=== PATIENT | female | born 1935 | race Caucasian/White ===

== ENCOUNTER → 2016-11-29 | Outpatient (CLI) | payer OTHER ==
[~2016-11-29] MED LIST: AMOXIL500 MG PO; APIDRA100 U/ML SC; AUGMENTIN 875875 MG PO; AVPAK AZITHROM250 M1 PO; CARAFATE1 G1 PO; CARDIZEM CD360 MG PO; CIPRO250 MG PO; COUMADIN2.5 M1 PO; COUMADIN3 M1 PO; COUMADIN4 M2 PO; COUMADIN5 M2 PO; EVISTA60 MG PO; FERROUS SULFAT325 MG PO; HUMULIN 70/30 710 M1; KEFLEX500 M1 PO; KIONEX15 GM/60 M; KIONEX15 GM/60 M PO; LANTUS100 U/ML SC; LASIX20 MG PO; LEVEMIR10 ML SC; LEVEMIR10 ML SQ; LOPRESSOR25 MG PO; LOVENOX80 MG/0.8 SC; LYRICA75 MG PO; METOCLOPRAMIDE5 MG PO; METOPROLOL50 MG PO; NATURE'S BLEND400 I1 PO; NOVOLOG1 UNIT/0.0 SC; NOVOLOG10 ML SC; OMEPRAZOLE20 MG PO; OMEPRAZOLE40 MG PO; PRAVACHOL40 MG PO; PRILOSEC40 M1 PO; PROTONIX40 MG PO; RALOXIFENE HCL60 MG PO; TYLENOL650 M1 PO; ULTRAM50 MG PO; VITAMIN D PO; VITAMIN D1000 IU PO; VITAMIN D2000 IU PO; VITAMIN D32000 UNI1 PO; VITAMIN D400 I1 PO; VOSOL HC OT; ZOFRAN ODT4 MG SL; [UNRECOGNIZED DRUG - OTHER]
[2016-11-29 12:00] LABS: BILIRUBIN NEGATIVE (NEGATIVE); BLOOD 1+ (NEGATIVE); CLARITY SL CLOUDY (CLEAR); COLOR YELLOW (YELLOW); GLUCOSE NEGATIVE (NEGATIVE); KETONE NEGATIVE (NEGATIVE); LEUKO ESTERASE TRACE (NEGATIVE); NITRITE NEGATIVE (NEGATIVE); PROTEIN NEGATIVE (NEGATIVE); SPECIFIC GRAVITY 1.015 (1.005-1.030); UROBILINOGEN 0.2 E.U./dl (0.2-1.0)
[2016-11-29 12:03] LABS: BASO # 0.1 10*3/uL (0.0-0.1); BASO % 1.3 % (0.0-1.0); EOS # 0.2 10*3/uL (0.0-0.4); EOS % 2.3 % (1.0-4.0); HEMATOCRIT 32.2 % (37.0-47.0); HEMOGLOBIN 9.6 g/dl (12.0-16.0); LYMPH # 2.3 10*3/uL (1.3-4.4); LYMPH % 32.7 % (27.0-41.0); MEAN CELL VOLUME 83.4 fl (81.0-99.0); MEAN CORPUSCULAR HGB 24.9 pg (27.0-31.0); MEAN CORPUSCULAR HGB CONC 29.8 g/dl (33.0-37.0); MEAN PLATELET VOLUME 9.8 fl (9.6-12.3); MONO # 0.6 10*3/uL (0.1-1.0); MONO % 9.2 % (3.0-9.0); NEUT # 3.8 10*3/uL (2.3-7.9); NEUT % 54.2 % (47.0-73.0); PLATELET COUNT AUTOMATED 271 10*3/uL (130-400); RED BLOOD COUNT 3.86 10*6/uL (4.10-5.10); RED CELL DISTRI WIDTH 15.1 % (0-14.5); WHITE BLOOD COUNT 6.9 10*3/uL (4.8-10.8)
[2016-11-29 12:08] LABS: URINE TP/CRE RATIO 0.1 (<0.21)
[2016-11-29 12:13] LABS: BACTERIA TRACE
[2016-11-29 12:33] LABS: ALBUMIN 3.2 gm/dl (3.1-4.5); MAGNESIUM 1.9 mg/dL (1.5-2.1); PHOSPHOROUS 3.1 mg/dL (2.5-4.9); POTASSIUM 5.6 mmol/L (3.5-5.1)
[2016-11-29 12:42] LABS: PTH INTACT 104.2 pg/mL (14.0-72.0); VITAMIN D, 25-HYDROXY 42.6 ng/mL (30-100)
== END | disposition home or self-care (01) ==
LOC: LAB 11:24
PROVIDERS: Internal Medicine Nephrology
DX: N18.4 Chronic kidney disease, stage 4 (severe) (principal)

== ENCOUNTER 2016-12-07 11:31 | Inpatient (IN) | payer OTHER ==
[~2016-12-07] VITALS: Ht 165.1 cm; Wt 69.9 kg
--- NOTE | ~2016-12-07 | CON ---
[place], [place] REPORT OF CON[facility]ULTATION [id number] UN[facility] #: [id number] ROOM: 408 DOCTOR: MARILUZ MUNSON MD BIRTHDATE: [birth year] DOS: 12/07/2016 HISTORY OF PRESENT ILLNESS: An 81-year-old patient who presented with chief complaint of a few months of diarrhea, 7-8 bowel movements a day. The patient has been taking Imodium supplementation for control of her diarrhea. The patient continued with abdominal cramping and distress. The patient has been taking Kayexalate for control of her potassium as well. PAST MEDICAL HISTORY: Congestive heart failure, renal failure, coronary artery disease, chronic renal disease, cerebrovascular accident, otherwise as dictated in the presentation. PAST SURGICAL HISTORY: Cataract, hysterectomy, CABG, appendectomy, nephrectomy, unilateral. ALLERGIES: MOTRIN, ZANTAC, MEPERIDINE. MEDICATIONS: List has been reviewed, otherwise. REVIEW OF SYSTEMS: No hematemesis, no hematochezia, no shortness of breath, no chest pain. DIGESTIVE SYSTEM: Continuation of cramp and diarrhea for past few months. PHYSICAL EXAMINATION: VITAL SIGNS: Appears to be within normal limits. HEENT: Within normal limits. NECK: Supple, no thyromegaly, no cervical lymphadenopathy. CHEST: Symmetric anatomy, equal expansion. No wheeze, no rhonchi. HEART: Normal sinus rhythm, no gallop, no murmur. ABDOMEN: Obese, large, soft. No hepato-organomegaly. Bowel sounds present. No point tenderness. EXTREMITIES: No cyanosis. No pedal edema. NEUROLOGIC: Alert, oriented to time, place, person. IMPRESSION: Diarrhea, etiology unclear. We are going to start from stool studies, ova and parasites, C. diff as well. We are going to remove the Kayexalate products from her. Once the above is done, we are going to start her on Florastor 250 mg p.o. b.i.d., to reculture this chronic insult. OTHER ADJUNCTIVE DIAGNOSES: As outlined in paragraph past medical, surgical history. CT scan has been reviewed. No acute colonic reports. White blood cell has been normal. H and H of 9 and 30. Microcystic indices with normal platelet count was noticed. Comprehensive metabolic panel: BUN and creatinine 30 and 1.8 with glucose of 150, GFR of 30 ____ was noticed. Liver function test appeared to be normal. Once the data is available to us and we will see how clinically she is responding, we may have to organize for colonoscopic evaluation on her. [place], [place] REPORT OF CONSULTATION NAME: HANG SCOTT UNIT #: [id number] ROOM: 408 DOCTOR: MARILUZ MUNSON MD BIRTHDATE: [birth year] MARILUZ MUNSON MD CM:CONSTR:REPORT OF CONSULTATION 1612 12/08/16 1331 interface
[2016-12-07 11:34] VITALS: BP 110/55
[2016-12-07] MEDS ORDERED: EVISTA60 MG PO (11:35)
[2016-12-07] MEDS ORDERED: DAILY VALUE1 EACH PO (11:36)
[2016-12-07 12:04] LABS: BASO # 0.1 10*3/uL (0.0-0.1); BASO % 0.8 % (0.0-1.0); EOS # 0.1 10*3/uL (0.0-0.4); EOS % 1.4 % (1.0-4.0); HEMATOCRIT 30.9 % (37.0-47.0); HEMOGLOBIN 9.4 g/dl (12.0-16.0); LYMPH # 1.4 10*3/uL (1.3-4.4); LYMPH % 22.6 % (27.0-41.0); MEAN CELL VOLUME 80.9 fl (81.0-99.0); MEAN CORPUSCULAR HGB 24.6 pg (27.0-31.0); MEAN CORPUSCULAR HGB CONC 30.4 g/dl (33.0-37.0); MONO # 0.6 10*3/uL (0.1-1.0); MONO % 9.4 % (3.0-9.0); NEUT # 4.1 10*3/uL (2.3-7.9); NEUT % 65.3 % (47.0-73.0); PLATELET COUNT AUTOMATED 233 10*3/uL (130-400); RED BLOOD COUNT 3.82 10*6/uL (4.10-5.10); RED CELL DISTRI WIDTH 15.1 % (0-14.5); WHITE BLOOD COUNT 6.3 10*3/uL (4.8-10.8)
[2016-12-07 12:21] LABS: ALBUMIN 3.2 gm/dl (3.1-4.5); BILIRUBIN, TOTAL 0.2 mg/dl (0.2-1.0); POTASSIUM 4.7 mmol/L (3.5-5.1); TOTAL PROTEIN 7.4 gm/dL (6.4-8.2)
[2016-12-07 12:30] VITALS: BP 119/53
[2016-12-07 12:37] LABS: INTERNATIONAL NORM RATIO 3.6 (2.0-3.5); PROTHROMBIN TIME 41.4 SECONDS (9.0-12.4)
[2016-12-07 15:45] VITALS: BP 115/71
[2016-12-07 16:00] VITALS: BP 115/71
[2016-12-07 18:04] LABS: CKMB 1.6 ng/ml (0.5-3.6); CPK 55 U/L (26-192)
[2016-12-07 18:06] LABS: TROPONIN I < 0.015 ng/ml (<0.045)
[2016-12-07 20:00] VITALS: BP 135/52
[2016-12-08] VITALS: BP 111/52
[2016-12-08 00:29] LABS: CKMB 1.4 ng/ml (0.5-3.6); CPK 44 U/L (26-192)
[2016-12-08 00:30] LABS: TROPONIN I < 0.015 ng/ml (<0.045)
[2016-12-08 06:13] LABS: BASO % 0.8 % (0.0-1.0); EOS # 0.1 10*3/uL (0.0-0.4); EOS % 1.9 % (1.0-4.0); HEMATOCRIT 27.4 % (37.0-47.0); HEMOGLOBIN 8.4 g/dl (12.0-16.0); LYMPH # 2.3 10*3/uL (1.3-4.4); LYMPH % 42.5 % (27.0-41.0); MEAN CELL VOLUME 81.3 fl (81.0-99.0); MEAN CORPUSCULAR HGB 24.9 pg (27.0-31.0); MEAN CORPUSCULAR HGB CONC 30.7 g/dl (33.0-37.0); MEAN PLATELET VOLUME 9.9 fl (9.6-12.3); MONO # 0.6 10*3/uL (0.1-1.0); MONO % 12.1 % (3.0-9.0); NEUT # 2.3 10*3/uL (2.3-7.9); NEUT % 42.5 % (47.0-73.0); PLATELET COUNT AUTOMATED 221 10*3/uL (130-400); RED BLOOD COUNT 3.37 10*6/uL (4.10-5.10); RED CELL DISTRI WIDTH 15.2 % (0-14.5); WHITE BLOOD COUNT 5.3 10*3/uL (4.8-10.8)
[2016-12-08 06:20] LABS: CKMB 1.1 ng/ml (0.5-3.6); CPK 43 U/L (26-192); TROPONIN I < 0.015 ng/ml (<0.045)
[2016-12-08 06:23] LABS: HEMOGLOBIN A1c 7.8 % (4.8-5.6)
[2016-12-08 06:39] LABS: FREE T4 1.02 ng/dl (0.76-1.46); MAGNESIUM 1.9 mg/dL (1.5-2.1); PHOSPHOROUS 3.4 mg/dL (2.5-4.9); POTASSIUM 4.6 mmol/L (3.5-5.1)
[2016-12-08 06:42] LABS: INTERNATIONAL NORM RATIO 3.6 (2.0-3.5); PROTHROMBIN TIME 41.5 SECONDS (9.0-12.4)
[2016-12-08 06:46] LABS: THYROID STIM HORMONE (HS) 3.21 uIU/ml (0.358-4.75)
[2016-12-08 07:00] LABS: FOLIC ACID 11.25 ng/mL (>5.38)
[2016-12-08 08:00] VITALS: BP 118/48
[2016-12-08 12:00] VITALS: BP 130/54
[2016-12-08 16:00] VITALS: BP 114/52
[2016-12-08 20:00] VITALS: BP 107/42
[2016-12-09] VITALS: BP 129/50
[2016-12-09 03:49] LABS: BILIRUBIN NEGATIVE (NEGATIVE); BLOOD TRACE-INTACT (NEGATIVE); CLARITY CLEAR (CLEAR); COLOR YELLOW (YELLOW); GLUCOSE NEGATIVE (NEGATIVE); KETONE NEGATIVE (NEGATIVE); LEUKO ESTERASE NEGATIVE (NEGATIVE); NITRITE NEGATIVE (NEGATIVE); PH 5.5 (5.0-9.0); PROTEIN NEGATIVE (NEGATIVE); UROBILINOGEN 0.2 E.U./dl (0.2-1.0)
[2016-12-09 03:54] LABS: BACTERIA TRACE; EPITHELIAL CELLS 35-40
[2016-12-09 03:55] LABS: URINE REFLEX COMMENT NO (NO)
[2016-12-09 07:11] LABS: BASO # 0.1 10*3/uL (0.0-0.1); BASO % 0.9 % (0.0-1.0); EOS # 0.1 10*3/uL (0.0-0.4); EOS % 1.9 % (1.0-4.0); HEMOGLOBIN 9.1 g/dl (12.0-16.0); LYMPH # 1.8 10*3/uL (1.3-4.4); LYMPH % 33.8 % (27.0-41.0); MEAN CELL VOLUME 81.1 fl (81.0-99.0); MEAN CORPUSCULAR HGB 24.6 pg (27.0-31.0); MEAN CORPUSCULAR HGB CONC 30.3 g/dl (33.0-37.0); MEAN PLATELET VOLUME 9.9 fl (9.6-12.3); MONO # 0.5 10*3/uL (0.1-1.0); MONO % 9.1 % (3.0-9.0); NEUT # 2.9 10*3/uL (2.3-7.9); NEUT % 54.1 % (47.0-73.0); PLATELET COUNT AUTOMATED 242 10*3/uL (130-400); RED CELL DISTRI WIDTH 15.1 % (0-14.5); WHITE BLOOD COUNT 5.3 10*3/uL (4.8-10.8)
[2016-12-09 07:47] LABS: PROTHROMBIN TIME 22.6 SECONDS (9.0-12.4)
[2016-12-09 08:00] VITALS: BP 130/94
[2016-12-09] MEDS ORDERED: LACTINEX 0.2 MG1 TAB PO (11:36)
[2016-12-09 12:00] VITALS: BP 128/66
== END 2016-12-09 13:37 | disposition home or self-care (01) | DRG 683 ==
LOC: ED 11:31 → EDHOLD 14:45 → 4E 14:45
PROVIDERS: Internal Medicine; Registered Nurse; Student in an Organized Health Care Education/Training Program
DX: N17.0 Acute kidney failure with tubular necrosis (principal); I50.32 Chronic diastolic (congestive) heart failure; E11.649 Type 2 diabetes mellitus with hypoglycemia without coma; I48.0 Paroxysmal atrial fibrillation; E86.0 Dehydration; E87.5 Hyperkalemia; E11.22 Type 2 diabetes mellitus with diabetic chronic kidney disease; I13.0 Hypertensive heart and chronic kidney disease with heart failure and stage 1 through stage 4 chronic kidney disease, or unspecified chronic kidney disease; E78.5 Hyperlipidemia, unspecified; D50.9 Iron deficiency anemia, unspecified; I25.10 Atherosclerotic heart disease of native coronary artery without angina pectoris; M54.5 Low back pain; K21.9 Gastro-esophageal reflux disease without esophagitis; M19.90 Unspecified osteoarthritis, unspecified site; M81.0 Age-related osteoporosis without current pathological fracture; N18.3 Chronic kidney disease, stage 3 (moderate); Z86.73 Personal history of transient ischemic attack (TIA), and cerebral infarction without residual deficits; Z90.49 Acquired absence of other specified parts of digestive tract; Z98.42 Cataract extraction status, left eye; Z98.41 Cataract extraction status, right eye; Z90.710 Acquired absence of both cervix and uterus; Z95.1 Presence of aortocoronary bypass graft; Z79.01 Long term (current) use of anticoagulants; Z90.5 Acquired absence of kidney; Z82.49 Family history of ischemic heart disease and other diseases of the circulatory system; Z80.9 Family history of malignant neoplasm, unspecified; Z88.6 Allergy status to analgesic agent; Z79.4 Long term (current) use of insulin; Z79.899 Other long term (current) drug therapy; Z87.891 Personal history of nicotine dependence; Z68.23 Body mass index [BMI] 23.0-23.9, adult

== ENCOUNTER → 2017-03-25 | Outpatient (CLI) | payer OTHER ==
[~2017-03-25] MED LIST changes: +DAILY VALUE1 EACH PO; +LACTINEX 0.2 MG1 TAB PO
== END | disposition home or self-care (01) ==
LOC: CT 09:00
DX: I71.4 Abdominal aortic aneurysm, without rupture (principal); M48.56XA Collapsed vertebra, not elsewhere classified, lumbar region, initial encounter for fracture; M47.896 Other spondylosis, lumbar region; I10 Essential (primary) hypertension; K44.9 Diaphragmatic hernia without obstruction or gangrene; E11.9 Type 2 diabetes mellitus without complications; Z90.710 Acquired absence of both cervix and uterus

== ENCOUNTER 2017-05-23 08:55 | Inpatient (IN) | payer OTHER ==
[~2017-05-23] VITALS: Ht 157.5 cm; Wt 62.2 kg
--- NOTE | ~2017-05-23 | PR ---
[place], [place] PROGRESS NOTE NAME: HANG SCOTT UNIT #: [id number] ROOM: 505 DOCTOR: CORBY TREJO MD BIRTHDATE: [birth year] DOS: 05/28/2017 SUBJECTIVE: The patient is doing better. REVIEW OF SYSTEMS HEENT: No trouble swallowing. No double vision. No loss of vision. No pain. ENT AND RESPIRATORY: No wheeze. No change in voice. No cough. No shortness of breath. No coughing up blood. No epistaxis. CARDIOLOGIC: No chest pain. No dizziness. No irregular heartbeat. No leg edema. No palpitations. No shortness of breath. HEMATOLOGIC AND LYMPH: No past transfusion. No fatigue. No loss of appetite. No easy bruising. GASTROENEROLOGIC: No change in bowel habits. No vomiting blood. No abdominal cramping. No nausea. No vomiting. No diarrhea. No constipation. No blood in stool. FEMALE REPRODUCTIVE: No dyspareunia. No pelvic pain. MUSCULOSKELETAL: No back pain. No muscle pain or weakness. No tingling/numbness. UROLOGIC: No pain with urination. No difficulty urinating. No frequent urination. NEUROLOGIC: No burning pain in feet. No trouble with coordination. No loss of consciousness. No headache. No tingling/numbness. No memory loss. PHYSICAL EXAMINATION: GENERAL: Pleasant woman, in no apparent distress. VITAL SIGNS: Stable. She is afebrile. HEENT: Normocephalic, atraumatic NECK AND THYROID: Supple. No JVD, thyromegaly, or lymphadenopathy. HEART: Normal S1, S2. Regular rate and rhythm. LUNGS: Clear to auscultation and percussion. ABDOMEN: Soft. Nontender, nondistended. Bowel sounds present. EXTREMITIES: Normal ROM. No clubbing. No edema. LABORATORY DATA: White count of 10.6, hemoglobin 6.2, hematocrit 20.7, platelet count of 258. TIBC 424, iron 14, saturation 3. B12 is more than 2000, ferritin 8.4. Folic acid 6.12. ASSESSMENT: 1. Acute anemia with GI workup negative. 2. Samaritan. PLAN: Overall, she looks slightly better. We will continue parenteral iron as well as Epogen. Blood ____. Hemoglobin and hematocrit are getting slightly better. I had a detailed discussion with the patient about it. [place], [place] PROGRESS NOTE NAME: HANG SCOTT UNIT #: [id number] ROOM: [facility] DOCTOR: CORBY TREJO MD BIRTHDATE: [birth year] CORBY TREJO MD CM:PNTRANS 5 CORBY TREJO MD 05/28/17915 interface
--- NOTE | ~2017-05-23 | PR ---
[place], [place] PROGRESS NOTE [id number] UNIT #: [id number] ROOM: 505 DOCTOR: CORBY TREJO MD BIRTHDATE: [birth year] DOS: 05/30/2017 SUBJECTIVE: She is awake, alert and responsive, feeling good. REVIEW OF SYSTEMS HEENT: No trouble swallowing. No double vision. No loss of vision. No pain. ENT AND RESPIRATORY: No wheeze. No change in voice. No cough. No shortness of breath. No coughing up blood. No epistaxis. CARDIOLOGIC: No chest pain. No dizziness. No irregular heartbeat. No leg edema. No palpitations. No shortness of breath. HEMATOLOGIC AND LYMPH: No past transfusion. No fatigue. No loss of appetite. No easy bruising. GASTROENEROLOGIC: No change in bowel habits. No vomiting blood. No abdominal cramping. No nausea. No vomiting. No diarrhea. No constipation. No blood in stool. FEMALE REPRODUCTIVE: No dyspareunia. No pelvic pain. MUSCULOSKELETAL: No back pain. No muscle pain or weakness. No tingling/numbness. UROLOGIC: No pain with urination. No difficulty urinating. No frequent urination. NEUROLOGIC: No burning pain in feet. No trouble with coordination. No loss of consciousness. No headache. No tingling/numbness. No memory loss. PHYSICAL EXAMINATION GENERAL: Pleasant woman in no apparent distress. VITAL SIGNS: Blood pressure 128/51, respirations 20, pulse 89, temperature 98.0. HEENT: Normocephalic, atraumatic NECK AND THYROID: Supple. No JVD, thyromegaly, or lymphadenopathy. HEART: Normal S1, S2. Regular rate and rhythm. LUNGS: Clear to auscultation and percussion. ABDOMEN: Soft. Nontender, nondistended. Bowel sounds present. EXTREMITIES: Normal ROM. No clubbing. No edema. LABORATORY DATA: Hemoglobin 6.4, hematocrit 21.7. ASSESSMENT: 1. Chronic kidney disease stage 3. 2. Anemia. 3. Diarrhea. PLAN: The patient will continue parenteral iron as well as Epogen. Her hemoglobin is slowly increasing. Once it goes to a good level, the patient can go home. I had a detailed discussion with the patient who seemed to understand it. [place], [place] PROGRESS NOTE NAME: HANG SCOTT UNIT #: [id number] ROOM: 505 DOCTOR: CORBY TREJO MD BIRTHDATE: [birth year] CORBY TREJO MD CM:PNOLE [id number] CORBY TREJO MD 05/31/17 0441 interface
--- NOTE | ~2017-05-23 | CON ---
[place], [place] REPORT OF CONSULTATION NAME: [facility] [id number] UNIT #: [id number] ROOM: 505 DOCTOR: VIRGINIE CARTWRIGHT MD BIRTHDATE: [birth year] DOS: 05/25/2017 REASON FOR CONSULTATION: Chronic kidney disease/patient known to you. HISTORY OF PRESENT ILLNESS: This is an 82-year-old female. She has a past medical history of known chronic kidney disease. She follows with my partner, Dr. Pennington, in the office. She was last seen just about a month ago. She has a baseline creatinine reported to be in the high 1s to low 2s, a solitary function kidney. She has a history of hypertension secondary to hyperparathyroidism, diabetes, diastolic dysfunction and issues with hyperkalemia. The patient was admitted to the hospital a few days ago. Apparently, she had worsening diarrhea, but no blood in the stool. She had some nausea and vomiting as well. Apparently, she is on Xarelto chronically. The patient has not been feeling well over the past month, intermittent episodes of diarrhea apparently, but she complained of not feeling well with fatigue and poor appetite. Labs revealed that her hemoglobin was markedly decreased. Her creatinine appeared to be at baseline. She was admitted for further evaluation. There was no overt bleeding noted. It seems she had an EGD and colonoscopy that was unrevealing. The patient, unfortunately was refusing blood transfusion. Her hemoglobin continues to drop. Creatinine level was noted to be 1.5 today and as noted is at her baseline. IV fluids had been ongoing, but these seem to have been recently discontinued. The patient has been given Epogen and IV iron, it seems. She feels very weak, but denies shortness of breath, fevers, chills or night sweats. She states she wants to go home. ALLERGIES: Meropenem, ibuprofen and Zantac. HOME MEDICATIONS: Include metoprolol, Lasix, Cardizem, Levemir, p.r.n. Kayexalate, tramadol, vitamin D, Evista, multivitamin and apparently she had been on Xarelto. PAST MEDICAL HISTORY: 1. Known chronic kidney disease as stated above. 2. Atrial fibrillation. 3. Coronary artery disease. 4. Congestive heart failure. 5. Chronic lower back pain 6. History of cerebrovascular accident. 7. Diabetes. 8. Hyperkalemia. 9. Gastroesophageal reflux disease. 10. Hyperlipidemia. 11. Anemia. 12. Osteoarthritis. 13. Osteoporosis. 14. History of AAA repair. 15. History of nephrectomy. 16. Appendectomy. 17. Bilateral cataracts. 18. Hysterectomy. [place], [place] REPORT OF CONSULTATION NAME: HANG SCOTT UNIT #: [id number] ROOM: [facility] DOCTOR: VIRGINIE CARTWRIGHT MD BIRTHDATE: [birth year] 19. History of CABG. FAMILY HISTORY: Negative for chronic kidney disease, otherwise noncontributory. SOCIAL HISTORY: No tobacco, alcohol or illicit drugs. REVIEW OF SYSTEMS: As per HPI, otherwise a 10-point review of systems was reviewed and was negative. PHYSICAL EXAMINATION: VITAL SIGNS: Temperature 97.9, pulse 52, respiratory rate 16, blood pressure 106/54. GENERAL: She is awake and alert, in no acute distress. HEENT: Shows no JVD. Sclerae are anicteric. Mucous membranes appeared moist. Pharynx is clear. NECK: Supple. Trachea was midline. There is no neck lymphadenopathy. There is no thyromegaly. LUNGS: Diminished breath sounds, appreciable wheeze. There is no tactile fremitus. She is not using accessory muscles of respiration. HEART: Normal S1, S2. No rub, no thrill or gallop. ABDOMEN: Soft, nontender. There is no organomegaly or rigidity. There is no rebound or guarding. There is no CVA tenderness. EXTREMITIES: Had trace edema. There is no lower extremity lymphadenopathy. Distal pulses are 2+. SKIN: Showed overt rash. There is no petechiae or purpura. Skin temperature was warm. NEUROLOGIC: She is awake, alert and following commands. Cranial nerves intact. LABORATORY DATA: Reviewed. Hemoglobin 5.3, white count of 8.0, platelets of 229, glucose 307, BUN 20, creatinine 1.5, sodium 139, potassium 5.2, CO2 of 19, calcium 7.9. IMPRESSION: 1. Stage III-IV chronic kidney disease. The patient has baseline creatinine in the upper ones range in the setting of a solitary kidney. 2. Chronic hyperkalemia, multifactorial in etiology. 3. Mild metabolic acidosis. 4. Severe anemia with an unclear etiology with likely some element of anemia of chronic disease. However, her acute decline etiology is not clear. 5. History of congestive heart failure. 6. Coronary artery disease, status post coronary artery bypass graft. PLAN: 1. Discontinue IV fluids. 2. Continue regular home meds. 3. The patient's drop in hemoglobin is concerning. She is apparently refusing blood transfusion. She should have limited blood draws and all labs should be drawn in the pediatric 2. 4. The patient should be transferred to facility that deals with blood in this medicine in my opinion. She should be on daily IV iron and high-dose Epogen. [place], [place] REPORT OF CONSULTATION NAME: HANG SCOTT UNIT #: [id number] ROOM: [facility] DOCTOR: VIRGINIE CARTWRIGHT MD BIRTHDATE: [birth year] If her hemoglobin his lower, she does not appear to be stable for discharge. 5. Continue ongoing supportive care and continue to follow her progress. Thank you for this consultation. VIRGINIE CARTWRIGHT MD CM:CONSTR:REPORT OF CONSULTATION 1453 05/25/17 1600 interface
--- NOTE | ~2017-05-23 | PR ---
[place], [place] PROGRESS NOTE [id number] UNIT #: [id number] ROOM: 505 DOCTOR: CHAY KAMARA,VIRGINIE Thorpe BIRTHDATE: [birth year] DOS: 05/26/2017 SUBJECTIVE: The patient was seen and examined. She is awake and alert. She tells me she feels better today. She denies shortness of breath at rest. She denies nausea or vomiting. PHYSICAL EXAMINATION: VITAL SIGNS: Showed temperature 98.2, pulse 91, respiratory rate 18, blood pressure 129/52. HEENT: Shows no JVD. LUNGS: Fairly clear. HEART: Normal S1, S2. No rub, thrill or gallop. ABDOMEN: Soft, nontender. There is no organomegaly. EXTREMITIES: Showed no edema. SKIN: Showed no rash. LABORATORY DATA: Not obtained today. Yesterday's hemoglobin was 5.3, sodium 139, potassium 5.2, BUN 20, creatinine of 1.5. ASSESSMENT AND PLAN: 1. Stage 4-5 chronic kidney disease. The patient has a baseline creatinine in the upper ones range. Her renal function is near baseline. 2. Chronic hyperkalemia somewhat multifactorial in etiology. Current potassium levels are stable. Continue supportive care. 3. Coronary artery disease, status post coronary artery bypass graft. 4. Severe anemia with an unclear etiology with some element of anemia of chronic disease. The patient is a Mandaen and is refusing blood transfusion. She tells me Hematology has been consulted. The patient should continue on high-dose erythropoietin stimulating agents to a maximum of 90,000 units per week. Daily IV iron should be administered for now as well. VIRGINIE CARTWRIGHT MD CM:PNTRANS 99 10 VIRGINIE CARTWRIGHT MD 05/26/172310 interface
--- NOTE | ~2017-05-23 | PR ---
[place], [place] PROGRESS NOTE NAME: HANG SCOTT UNIT #: [id number] ROOM: 505 DOCTOR: CORBY TREJO MD BIRTHDATE: [birth year] DOS: 05/29/2017 SUBJECTIVE: The patient is doing better, though she is still complaining of feeling weak and tired with no pep. REVIEW OF SYSTEMS HEENT: No trouble swallowing. No double vision. No loss of vision. No pain. ENT AND RESPIRATORY: No wheeze. No change in voice. No cough. No shortness of breath. No coughing up blood. No epistaxis. CARDIOLOGIC: No chest pain. No dizziness. No irregular heartbeat. No leg edema. No palpitations. No shortness of breath. HEMATOLOGIC AND LYMPH: No past transfusion. No fatigue. No loss of appetite. No easy bruising. GASTROENTEROLOGIC: No change in bowel habits. No vomiting blood. No abdominal cramping. No nausea. No vomiting. No diarrhea. No constipation. No blood in stool. FEMALE REPRODUCTIVE: No dyspareunia. No pelvic pain. MUSCULOSKELETAL: No back pain. No muscle pain or weakness. No tingling/numbness. UROLOGIC: No pain with urination. No difficulty urinating. No frequent urination. NEUROLOGIC: No burning pain in feet. No trouble with coordination. No loss of consciousness. No headache. No tingling/numbness. No memory loss. OBJECTIVE: GENERAL: Pleasant woman in no apparent distress. VITAL SIGNS: Blood pressure 140/60, respirations 20, pulse 82, temperature 98.2. HEENT: Normocephalic, atraumatic NECK AND THYROID: Supple. No JVD, thyromegaly, or lymphadenopathy. HEART: Normal S1, S2. Regular rate and rhythm. LUNGS: Clear to auscultation and percussion. ABDOMEN: Soft. Nontender, nondistended. Bowel sounds present. EXTREMITIES: Normal ROM. No clubbing. No edema. LABORATORY DATA: White count 10.9, hemoglobin 6.2, hematocrit 20.7, platelet count 258. Chemistries EGFR of 35. ASSESSMENT: 1. Iron-deficiency anemia. 2. Chronic kidney disease stage 3. 3. Generalized weakness and secondary to her anemia. 4. Diarrhea. 5. Dehydration. PLAN: I had detailed discussion with the patient and Dr. Richardson. She will continue her Epogen and parenteral iron until hemoglobin and hematocrit goes to a decent level. I did discuss with the patient again about her anemia. She is a Sabianism and does not want any transfusions. She is getting a blood work through fingerstick. Ample time was given to the patient to ask me [place], [place] PROGRESS NOTE NAME: HANG SCOTT UNIT #: [id number] ROOM: [facility] DOCTOR: CORBY TREJO MD BIRTHDATE: [birth year] questions. CORBY TREJO MD CM:PNTRANS [id number] CORBY TREJO MD 05/30/17 0531 interface
--- NOTE | ~2017-05-23 | O ---
[place], [place] OPERATIVE NOTE NAME: HANG SCOTT UNIT #: [id number] ROOM: 505 DOCTOR: JEIMY KAMARAMARILUZ BIRTHDATE: [birth year] DOS: HISTORY OF PRESENT ILLNESS: The patient is an 82-year-old who is a Alevism, with severe anemia, H and H of 6 and 21. She refuses blood transfusions. Reticulocyte count has been 1.9%. Vitamin B12 is 12, ferritin is 8.4, folic acid is normal. Total iron binding study, normalized on level below. Troponin normal. CT scan of the abdomen and pelvis has been reviewed. No acute process was seen. Comprehensive metabolic panel. IMPRESSION: Mild elevation of creatinine to 1.7, GFR 35, chronic kidney disease stage III. Liver function test normal. Hemoglobin A1c 7.1. Urine cultures, normal B12, folate was reassessed. Again, vitamin D normal. PAST MEDICAL HISTORY: Diabetes mellitus, hyperlipidemia, osteoporosis, renal insufficiency, coronary artery disease, AFib, has been on Xarelto. PAST SURGICAL HISTORY: Appendectomy, nephrectomy, abdominal aortic aneurysm, hysterectomy, cataracts. SOCIAL HISTORY: Past smoker, nonalcohol consumer. ALLERGIES: IBUPROFEN, MEPERIDINE AND RANITIDINE. FAMILY HISTORY: Noncontributory. MEDICATIONS: List reviewed. PROCEDURE: Today's procedure part of investigation of anemia is panendoscopy and colonoscopy. PREMEDICATION: Versed and Diprivan. SCOPE: Olympus forwarding colonoscope, 10L video. REPORT: After putting the patient in the left lateral position and after application of lubricant to rectal pouch and ____ examination, scope was introduced thereafter under direct visualization, advanced through a very tortuous colon. Right colon was approached. Ileocecal valve was defined. The patient was extubated, tolerated procedure well. IMPRESSION: Severe anemia, tortuous colon. Normal colonoscopic examination, otherwise. PLAN AND DISCUSSION: We are going to proceed with panendoscopy. Patient has presented with severe anemia. The patient with history of Alevism and refusal of transfusion. PROCEDURE: Today's procedure part of investigation panendoscopy. [place], [place] OPERATIVE NOTE NAME: HANG SCOTT UNIT #: [id number] ROOM: [facility] DOCTOR: JEIMY KAMARA,MARILUZ BIRTHDATE: [birth year] PREMEDICATION: Versed and Diprivan. The scope was Olympus forwarding gastroscope Q10 video. REPORT: After putting the patient in the left lateral position and after application of lubricant to the scope, the scope was introduced. Thereafter, under direct visualization, I advanced through the length of the esophagus without difficulty. Small hiatal hernia seen. Gastric pouch was entered. Gastritis noticed. Duodenal bulb, second and third part within normal limits. The patient extubated, tolerated procedure well. IMPRESSION: Small hiatal hernia, gastritis. PLAN AND DISCUSSION: We are going to proceed with iron supplementation, regular diet and clinical reassessment. The patient's B12 and folate within normal limit. Requires supplementation of iron. MARILUZ MUNSON MD CM:OPRECORD:OPERATIVE NOTE 182 09 MARILUZ MUNSON MD 05/24/172109 interface
--- NOTE | ~2017-05-23 | CON ---
[place], [place] REPORT OF CONSULTATION [id number] UNIT #: [id number] ROOM: 505 DOCTOR: CORBY TREJO MD BIRTHDATE: [birth year] DOS: 05/27/2017 HISTORY OF PRESENT ILLNESS: The patient is an 82-year-old [place] woman who presented to the Emergency Department initially with the complaint of generalized weakness and diarrhea. She says the symptoms started about 2 days before admission, although she had diarrhea for about several years off and on. She has been hospitalized before for dehydration. Further workup revealed severe anemia. Subsequently, she underwent a GI workup, which was negative. ____ hemoglobin and hematocrit dropped. She is a Spiritism and refuses to take any transfusions and subsequently we were consulted for further evaluation and management. PAST MEDICAL HISTORY: Significant for iron deficiency anemia. The patient is Spiritism with chronic atrial fibrillation, coronary artery disease, CHF, chronic low back pain, chronic kidney disease stage III, CVA, diabetes, GE reflux disease, hyperlipidemia, mitral valve prolapse, osteoarthritis, osteoporosis. PAST SURGICAL HISTORY: Abdominal aortic aneurysm, history of nephrectomy, appendectomy, bilateral cataract extraction, hysterectomy, CABG. SOCIAL HISTORY: No smoking, drinking, or drug abuse. FAMILY HISTORY: Father, coronary artery disease. Mother had cancer, unknown type. Mother at the age 53 of cancer. ALLERGIES: MOTRIN, ZANTAC, MEPERIDINE. MEDICATIONS: Diltiazem, furosemide, NovoLog, Levemir, metoprolol, multivitamins, raloxifene, tramadol, warfarin. REVIEW OF SYSTEMS: CONSTITUTIONAL: No chills. No fatigue. No fever. No loss of appetite. No night sweats. No weakness. No weight loss. HEENT: No trouble swallowing. No loss of smell. No loss of hearing. No double vision. No pain. No discharge. ENT AND RESPIRATORY: No wheeze. No sore throat. No change in voice. No hearing loss. No nose bleed. No cough. No trouble breathing through nose. No shortness of breath. No coughing up blood. No epistaxis. CARDIOVASCULAR: No chest pain. No dizziness. No irregular heartbeat. No leg edema. No pain in legs while walking. No palpitations. No shortness of breath. DERMATOLOGIC: No acne. No hives. No laceration. No mole. No rash. ENDOCRINE: No cold intolerance. No diabetes. No fatigue. No hot flashes. No polydipsia. No polyuria. No urinating frequently. No weight loss. HEMATOLOGIC AND LYMPH: No fatigue. No easy bruising. GASTROENTEROLOGIC: No change in bowel habits. No indigestion. No frequent bloating. No vomiting blood. No abdominal cramping. No nausea. No heartburn. No vomiting. No abdominal pain. No dysphagia. No diarrhea. No constipation. No blood in stool. [place], [place] REPORT OF CONSULTATION NAME: HANG SCOTT UNIT #: [id number] ROOM: [facility] DOCTOR: CORBY TREJO MD BIRTHDATE: [birth year] FEMALE REPRODUCTIVE: No vaginal itching. No difficulty urinating. No heavy periods. No dyspareunia. No sexually active. No dysmenorrhea. No pelvic pain. No breast pain. No nipple discharge. No abnormal vaginal discharge. No hot flashes. MUSCULOSKELETAL: No back pain. No muscle pain or weakness. No neck pain. No tingling/numbness. No swelling/bruising. No osteoporosis treatment. OPTHALMOLOGIC: No double vision. No diminished vision. No loss of vision. UROLOGIC: No dysuria. No frequent nighttime urination. No irregular periods. No pain with urination. No difficulty urinating. No blood in urine. No frequent urination. No urinary incontinence. NEUROLOGIC: No loss of sensation in specific body area. No vertigo. No burning pain in feet. No trouble with balance. No trouble with coordination. No loss of consciousness. No loss of feeling/power. No confusion. No headache. No tingling/numbness. PSYCHOLOGIC: No tinnitus. No headaches. No shortness of breath. No weight decrease. No nausea. No vomiting. No abdominal discomfort. No constipation. No diarrhea. No depression. No anxiety. PHYSICAL EXAMINATION: GENERAL: Pleasant woman in no apparent distress. VITAL SIGNS: Stable. She is afebrile. HEENT: Oral mucosa appears intact. The external ears are normal in appearance. Nares are patent without lesions, exudates, erythema, or inflammation. Tongue is symmetrical. Uvula is midline. NECK AND THYROID: Neck supple without palpable masses. Trachea is midline. No thyromegaly. No carotid bruit or JVD. BREASTS: Normal. Nipples unremarkable. No drainage. No lumps felt on either side. HEART: Normal S1, S2, without significant murmur, rub, or gallop. LUNGS: Clear to auscultation and percussion with good air entry bilaterally. The patient is breathing easily without the use of accessory muscles. Diaphragmatic excursions are intact. ABDOMEN: No costovertebral angle tenderness. Soft. No organomegaly or masses. Nontender. No hernias present. Liver and spleen are not palpable. LYMPHATIC: No adenopathy noted in the cervical, supraclavicular, axillary, or inguinal regions. NEUROLGIC: Nonfocal. Oriented to person, place, and time. MENTAL STATUS: Appropriate for mood and affect. PERIPHERAL PULSES: No varicosities. Femoral and pedal pulses are palpable. EXTREMITIES: Without cyanosis, clubbing, or edema. No gross anomalies. LABORATORY DATA: BUN of 20, creatinine 1.52, EGFR is 33. Sodium 139, potassium 4.2, chloride 112, bicarbonate 19, calcium 7.9. White count 8.0, hemoglobin 5.3, hematocrit 18.3, platelet count 229. TIBC 424, iron 14, saturation 3, vitamin B12 more than 2000, ferritin is 8.4, folic acid 6.12. ASSESSMENT: 1. Severe iron deficiency anemia. 2. The patient is a Spiritism. [place], [place] REPORT OF CONSULTATION NAME: HANG SCOTT UNIT #: [id number] ROOM: 505 DOCTOR: CORBY TREJO MD BIRTHDATE: [birth year] PLAN: I will continue the present management to continue parenteral iron as well as Epogen. Blood draws should be restricted completely and H and H should be monitored through fingerstick and follow the counts closely. I did tell her that acute anemia can cause severe problems including heart attacks and CHF. She seemed to understand it, but refuses to take any transfusions. was present at the time of discussion. Ample time was given to the patient to ask me questions. Thanks for consulting and we will keep a close watch on her counts. Thanks for consulting and letting me participate in the care of this interesting patient. CORBY TREJO MD CM:CONSTR:REPORT OF CONSULTATION 1411 05/28/17 0320 interface
[2017-05-23 08:55] VITALS: BP 131/56
[2017-05-23 09:27] LABS: BASO % 0.4 % (0.0-1.0); EOS # 0.2 10*3/uL (0.0-0.4); EOS % 2.7 % (1.0-4.0); HEMATOCRIT 21.9 % (37.0-47.0); HEMOGLOBIN 6.4 g/dl (12.0-16.0); LYMPH # 1.8 10*3/uL (1.3-4.4); LYMPH % 23.6 % (27.0-41.0); MEAN CELL VOLUME 77.4 fl (81.0-99.0); MEAN CORPUSCULAR HGB 22.6 pg (27.0-31.0); MEAN CORPUSCULAR HGB CONC 29.2 g/dl (33.0-37.0); MEAN PLATELET VOLUME 9.2 fl (9.6-12.3); MONO # 0.7 10*3/uL (0.1-1.0); MONO % 8.8 % (3.0-9.0); NEUT # 4.9 10*3/uL (2.3-7.9); NEUT % 64.1 % (47.0-73.0); PLATELET COUNT AUTOMATED 257 10*3/uL (130-400); RED BLOOD COUNT 2.83 10*6/uL (4.10-5.10); RED CELL DISTRI WIDTH 17.2 % (0-14.5); WHITE BLOOD COUNT 7.6 10*3/uL (4.8-10.8)
[2017-05-23 09:36] LABS: ACT PARTIAL THROMBO TIME 31.1 SECONDS (20.8-31.5); INTERNATIONAL NORM RATIO 1.3 (2.0-3.5)
[2017-05-23 09:46] LABS: ALBUMIN 3.1 gm/dl (3.1-4.5); ALKALINE PHOSPHATASE 88 U/L (45-117); BUN 28 mg/dl (7-24); CHLORIDE 110 mmol/L (98-107); CKMB 0.8 ng/ml (0.5-3.6); CPK 42 U/L (26-192); CREATININE 1.96 mg/dL (0.55-1.02); LIPASE 142 U/L (73-393); MAGNESIUM 1.8 mg/dL (1.5-2.1); POTASSIUM 4.8 mmol/L (3.5-5.1); SGOT/AST 18 IU/L (3-35); SGPT/ALT 11 U/L (12-78); SODIUM 139 mmol/L (136-145); TOTAL PROTEIN 7.2 gm/dL (6.4-8.2)
[2017-05-23 09:52] LABS: TROPONIN I < 0.015 ng/ml (<0.045)
[2017-05-23 10:38] LABS: RETICULOCYTE % 1.97 % (0.50-2.50)
[2017-05-23 11:00] LABS: FERRITIN 8.4 ng/mL (10.0-291.0)
[2017-05-23 11:03] LABS: IRON 14 ug/dL (50-170); TOTAL IRON BINDING CAPACITY 424 ug/dl (250-450)
[2017-05-23 11:39] LABS: BILIRUBIN NEGATIVE (NEGATIVE); BLOOD NEGATIVE (NEGATIVE); CLARITY CLEAR (CLEAR); COLOR YELLOW (YELLOW); GLUCOSE NEGATIVE (NEGATIVE); KETONE NEGATIVE (NEGATIVE); LEUKO ESTERASE TRACE (NEGATIVE); NITRITE NEGATIVE (NEGATIVE); SPECIFIC GRAVITY 1.015 (1.005-1.030); UROBILINOGEN 0.2 E.U./dl (0.2-1.0)
[2017-05-23 11:48] LABS: BACTERIA TRACE; RBC 0-2 rbc/hpf (0-2)
[2017-05-23 16:00] VITALS: BP 112/53
[2017-05-23] MEDS ORDERED: PRAVACHOL40 MG PO (16:54)
[2017-05-23] MEDS ORDERED: PROTONIX40 MG PO (16:57)
[2017-05-23] MEDS ORDERED: XARE20MG PO (16:59)
[2017-05-23] MEDS ORDERED: Coumadin3 MG PO (16:59)
[2017-05-23 20:00] VITALS: BP 112/58
[2017-05-24] VITALS (8 sets, daily range): BP systolic 90–127; BP diastolic 42–66
[2017-05-24 06:14] LABS: BASO % 0.4 % (0.0-1.0); EOS # 0.2 10*3/uL (0.0-0.4); EOS % 1.7 % (1.0-4.0); HEMATOCRIT 20.9 % (37.0-47.0); LYMPH # 1.6 10*3/uL (1.3-4.4); LYMPH % 16.7 % (27.0-41.0); MEAN CELL VOLUME 78.3 fl (81.0-99.0); MEAN CORPUSCULAR HGB 22.5 pg (27.0-31.0); MEAN CORPUSCULAR HGB CONC 28.7 g/dl (33.0-37.0); MEAN PLATELET VOLUME 9.9 fl (9.6-12.3); MONO # 0.9 10*3/uL (0.1-1.0); MONO % 9.9 % (3.0-9.0); NEUT # 6.6 10*3/uL (2.3-7.9); PLATELET COUNT AUTOMATED 249 10*3/uL (130-400); RED BLOOD COUNT 2.67 10*6/uL (4.10-5.10); RED CELL DISTRI WIDTH 17.2 % (0-14.5); RETICULOCYTE % 2.24 % (0.50-2.50); WHITE BLOOD COUNT 9.3 10*3/uL (4.8-10.8)
[2017-05-24 06:30] LABS: CREATININE 1.71 mg/dL (0.55-1.02); MAGNESIUM 1.5 mg/dL (1.5-2.1); PHOSPHOROUS 3.5 mg/dL (2.5-4.9); POTASSIUM 5.5 mmol/L (3.5-5.1); TOTAL PROTEIN 6.8 gm/dL (6.4-8.2)
[2017-05-24 06:35] LABS: THYROID STIM HORMONE (HS) 2.55 uIU/ml (0.358-4.75)
[2017-05-24 08:24] LABS: VITAMIN D, 25-HYDROXY 40.3 ng/mL (30-100)
[2017-05-25] VITALS: BP 127/52
[2017-05-25 06:18] LABS: HEMATOCRIT 18.3 % (37.0-47.0); MEAN CELL VOLUME 78.5 fl (81.0-99.0); MEAN CORPUSCULAR HGB 22.7 pg (27.0-31.0); NUCLEATED RED BLOOD CELL 0.2 % (0.0-0.0); PLATELET COUNT AUTOMATED 229 10*3/uL (130-400); RED BLOOD COUNT 2.33 10*6/uL (4.10-5.10); RED CELL DISTRI WIDTH 17.4 % (0-14.5)
[2017-05-25 06:25] LABS: HEMOGLOBIN 5.3 g/dl (12.0-16.0)
[2017-05-25 06:43] LABS: CREATININE 1.52 mg/dL (0.55-1.02); POTASSIUM 5.2 mmol/L (3.5-5.1)
[2017-05-25 06:54] LABS: BASOPHILS 2 % (0-1); TOTAL CELLS COUNTED 100 #CELLS
[2017-05-25 06:55] LABS: OVALOCYTES MODERATE; PLATELET SUFFICIENCY NORMAL (NORMAL); POLYCHROMASIA SLIGHT
[2017-05-25 08:00] VITALS: BP 116/58
[2017-05-25 12:00] VITALS: BP 106/54
[2017-05-25 16:00] VITALS: BP 103/53
[2017-05-25 16:50] VITALS: BP 90/60
[2017-05-25 20:00] VITALS: BP 102/38; BP 110/42
[2017-05-26] VITALS: BP 137/45
[2017-05-26 04:00] VITALS: BP 112/40; BP 112/42
[2017-05-26 08:00] VITALS: BP 102/44
[2017-05-26 12:00] VITALS: BP 129/52
[2017-05-26 16:00] VITALS: BP 128/50
[2017-05-26 20:00] VITALS: BP 122/67
[2017-05-26 21:43] LABS: HEMATOCRIT 19.5 % (37.0-47.0)
[2017-05-26 21:49] LABS: HEMOGLOBIN 5.8 g/dl (12.0-16.0)
[2017-05-27] VITALS: BP 142/51
[2017-05-27 08:00] VITALS: BP 132/64; BP 136/60
[2017-05-27 12:00] VITALS: BP 134/56
[2017-05-27 16:00] VITALS: BP 100/42
[2017-05-27 20:00] VITALS: BP 114/43
[2017-05-28] VITALS: BP 93/78
[2017-05-28 04:00] VITALS: BP 119/45
[2017-05-28 06:12] LABS: HEMATOCRIT 20.7 % (37.0-47.0); HEMOGLOBIN 6.2 g/dl (12.0-16.0); MEAN CELL VOLUME 81.2 fl (81.0-99.0); MEAN CORPUSCULAR HGB 24.3 pg (27.0-31.0); MEAN PLATELET VOLUME 9.9 fl (9.6-12.3); NUCLEATED RED BLOOD CELL 0.2 10*3/uL (0.0-0.0); PLATELET COUNT AUTOMATED 258 10*3/uL (130-400); RED BLOOD COUNT 2.55 10*6/uL (4.10-5.10); RED CELL DISTRI WIDTH 19.2 % (0-14.5); WHITE BLOOD COUNT 10.9 10*3/uL (4.8-10.8)
[2017-05-28 06:30] LABS: CREATININE 1.45 mg/dL (0.55-1.02)
[2017-05-28 06:33] LABS: BASOPHILS 1 % (0-1); POLYCHROMASIA SLIGHT; TOTAL CELLS COUNTED 100 #CELLS
[2017-05-28 06:35] LABS: OVALOCYTES FEW; PLATELET SUFFICIENCY NORMAL (NORMAL)
[2017-05-28 08:00] VITALS: BP 116/56
[2017-05-28 12:00] VITALS: BP 118/65
[2017-05-28 16:00] VITALS: BP 101/68
[2017-05-28 20:00] VITALS: BP 111/45
[2017-05-29] VITALS: BP 104/54
[2017-05-29 07:34] LABS: HEMATOCRIT 20.1 % (37.0-47.0)
[2017-05-29 08:00] VITALS: BP 114/68
[2017-05-29 12:00] VITALS: BP 113/56
[2017-05-29 16:00] VITALS: BP 104/57
[2017-05-29 20:00] VITALS: BP 115/45
[2017-05-30] VITALS: BP 117/41
[2017-05-30 06:55] LABS: HEMATOCRIT 21.7 % (37.0-47.0); HEMOGLOBIN 6.4 g/dl (12.0-16.0)
[2017-05-30 08:00] VITALS: BP 123/46
[2017-05-30 12:00] VITALS: BP 124/51
[2017-05-30 16:00] VITALS: BP 110/42
[2017-05-30 20:00] VITALS: BP 108/42
[2017-05-31] VITALS: BP 110/44
[2017-05-31 06:37] LABS: HEMATOCRIT 23.9 % (37.0-47.0)
[2017-05-31 08:00] VITALS: BP 96/76
[2017-05-31 12:00] VITALS: BP 102/65
[2017-05-31] MEDS ORDERED: PROCRIT20000 UNIT IV (13:29)
[2017-05-31] MEDS ORDERED: PROCRIT20000 UNIT SC (13:41)
== END 2017-05-31 14:49 | disposition home or self-care (01) | DRG 811 ==
LOC: ED 08:55 → 5E 10:32
PROVIDERS: Emergency Medicine; Internal Medicine; Internal Medicine Hematology & Oncology; Student in an Organized Health Care Education/Training Program; ADMIT Internal Medicine
PROC: 0DJD8ZZ Inspection of Lower Intestinal Tract, Via Natural or Artificial Opening Endoscopic (ICD-10-PCS; principal; 2017-05-24)
PROC: 0DJ08ZZ Inspection of Upper Intestinal Tract, Via Natural or Artificial Opening Endoscopic (ICD-10-PCS; principal; 2017-05-24)
DX: D50.9 Iron deficiency anemia, unspecified (principal); N17.0 Acute kidney failure with tubular necrosis; E44.0 Moderate protein-calorie malnutrition; E87.2 Acidosis; D68.59 Other primary thrombophilia; N18.5 Chronic kidney disease, stage 5; E11.22 Type 2 diabetes mellitus with diabetic chronic kidney disease; E87.1 Hypo-osmolality and hyponatremia; E11.65 Type 2 diabetes mellitus with hyperglycemia; E67.8 Other specified hyperalimentation; G89.29 Other chronic pain; M54.5 Low back pain; I48.0 Paroxysmal atrial fibrillation; E87.5 Hyperkalemia; E86.0 Dehydration; D63.1 Anemia in chronic kidney disease; R19.7 Diarrhea, unspecified; K21.9 Gastro-esophageal reflux disease without esophagitis; K29.70 Gastritis, unspecified, without bleeding; I48.2 Chronic atrial fibrillation; K44.9 Diaphragmatic hernia without obstruction or gangrene; I25.10 Atherosclerotic heart disease of native coronary artery without angina pectoris; I50.9 Heart failure, unspecified; E78.5 Hyperlipidemia, unspecified; M19.90 Unspecified osteoarthritis, unspecified site; M81.0 Age-related osteoporosis without current pathological fracture; Z79.4 Long term (current) use of insulin; Z90.5 Acquired absence of kidney; Z88.8 Allergy status to other drugs, medicaments and biological substances; Z88.6 Allergy status to analgesic agent; Z90.49 Acquired absence of other specified parts of digestive tract; Z86.73 Personal history of transient ischemic attack (TIA), and cerebral infarction without residual deficits; Z95.1 Presence of aortocoronary bypass graft; Z90.710 Acquired absence of both cervix and uterus; Z82.49 Family history of ischemic heart disease and other diseases of the circulatory system; Z83.3 Family history of diabetes mellitus; Z80.9 Family history of malignant neoplasm, unspecified; Z79.899 Other long term (current) drug therapy; Z68.25 Body mass index [BMI] 25.0-25.9, adult; Z53.1 Procedure and treatment not carried out because of patient's decision for reasons of belief and group pressure

== ENCOUNTER → 2017-06-13 | Day surgery (SDC) | payer OTHER ==
[2017-06-10 14:50] LABS: BASO # 0.1 10*3/uL (0.0-0.1); BASO % 0.9 % (0.0-1.0); EOS # 0.1 10*3/uL (0.0-0.4); EOS % 1.1 % (1.0-4.0); HEMATOCRIT 34.2 % (37.0-47.0); HEMOGLOBIN 9.7 g/dl (12.0-16.0); LYMPH # 2.2 10*3/uL (1.3-4.4); MEAN CELL VOLUME 91.2 fl (81.0-99.0); MEAN CORPUSCULAR HGB 25.9 pg (27.0-31.0); MEAN CORPUSCULAR HGB CONC 28.4 g/dl (33.0-37.0); MEAN PLATELET VOLUME 10.9 fl (9.6-12.3); MONO # 0.6 10*3/uL (0.1-1.0); NEUT # 3.5 10*3/uL (2.3-7.9); NEUT % 54.7 % (47.0-73.0); PLATELET COUNT AUTOMATED 291 10*3/uL (130-400); RED BLOOD COUNT 3.75 10*6/uL (4.10-5.10); RED CELL DISTRI WIDTH 27.4 % (0-14.5); WHITE BLOOD COUNT 6.4 10*3/uL (4.8-10.8)
[2017-06-10 14:53] LABS: BILIRUBIN NEGATIVE (NEGATIVE); BLOOD NEGATIVE (NEGATIVE); CLARITY CLOUDY (CLEAR); COLOR YELLOW (YELLOW); GLUCOSE NEGATIVE (NEGATIVE); KETONE TRACE (NEGATIVE); LEUKO ESTERASE NEGATIVE (NEGATIVE); NITRITE NEGATIVE (NEGATIVE); PH 5.5 (5.0-9.0); UROBILINOGEN 0.2 E.U./dl (0.2-1.0)
[2017-06-10 14:58] LABS: INTERNATIONAL NORM RATIO 1.3 (2.0-3.5)
[2017-06-10 15:02] LABS: BACTERIA 4+; EPITHELIAL CELLS TNTC; RBC 0-2 rbc/hpf (0-2)
[2017-06-10 15:08] LABS: CREATININE 1.85 mg/dL (0.55-1.02); POTASSIUM 5.4 mmol/L (3.5-5.1)
[~2017-06-13] VITALS: Ht 157.4 cm; Wt 67.6 kg
[~2017-06-13] MED LIST changes: +Coumadin3 MG PO; +NORCO 5-325 TA1 EACH PO; +PROCRIT20000 UNIT IV; +PROCRIT20000 UNIT SC; +XARE20MG PO
--- NOTE | ~2017-06-13 | PROC NOTE ---
[place], [place] PROCEDURE NOTE [id number] UNIT #: [id number] ROOM: DOCTOR: MIQUEL CUNNINGHAM MD BIRTHDATE: [birth year] DOS: 06/13/2017 PREOPERATIVE DIAGNOSIS: Poor intravenous access. POSTOPERATIVE DIAGNOSIS: Poor intravenous access. PROCEDURE: Left internal jugular MediPort placement. SURGEON: Miquel Cunningham M.D. ANGLE ROLL OPERATOR: JOSÉ. ANESTHESIA: MAC. INDICATIONS: This is an 82-year-old lady who requires frequent IV infusions for iron for chronic anemia, who is here for a MediPort placement. The patient has poor IV access and therefore a MediPort was deemed necessary for continuation of her iron therapy. The procedure and its complications were explained to the patient in detail preoperatively. Complications that were discussed included, but were not limited to bleeding, infection, hemothorax, pneumothorax and prolonged pain. She agreed to proceed. DESCRIPTION OF PROCEDURE: After identifying the patient, the patient was brought to the operating suite and placed in the supine position. After IV sedation was administered, a timeout procedure was called and the parts were then painted and draped in the usual sterile fashion. With the help of an ultrasound, the left internal jugular vein was accessed with the help of Seldinger technique, the guidewire was passed and this was confirmed to be in good placement on fluoroscopy. Thereafter, local anesthesia was infiltrated approximately 2-3 fingerbreadths below the left clavicle in previously marked incision for placement of the port. The skin and the subcutaneous tissue were incised and a pocket was created for the port; thereafter, the catheter was passed over an introduced through this incision to the site in the neck where the wire was placed with the help of the dilator and sheath, which was passed over the wire. The catheter was then placed through it and was confirmed in good position via fluoroscopy. Thereafter, the catheter was cut at approximately 22 cm and the port was attached to the end of the catheter. It was confirmed to be in good place by injecting heparin and by aspirating a good flow of blood. Thereafter, this port was then fixed to the underlying chest wall with the help of 3-0 Prolene. The subcutaneous tissue was approximated with the help of 3-0 Vicryl in a running fashion and the skin edges were approximated with the help of 4-0 Vicryl in a subcuticular running fashion. A dressing was placed. The patient tolerated the procedure well and was taken to the recovery room in stable fashion where another chest x-ray for placement of the left internal jugular MediPort was ordered. Dr. Miquel Cunningham, the attending surgeon, was present throughout the operating case. [place], [place] PROCEDURE NOTE NAME: SHELTONSheilaEMILIANOCATHYHANG J UNIT #: [id number] ROOM: DOCTOR: MIQUEL CUNNINGHAM MD BIRTHDATE: [birth year] Miquel Cunningham MD CM:PROCNOTE:PROCEDURE NOTE [id number] MIQUEL CUNNINGHAM MD
[2017-06-13 07:16] VITALS: BP 148/67
[2017-06-13 08:20] VITALS: BP 109/59
[2017-06-13 08:35] VITALS: BP 110/42
[2017-06-13 08:48] VITALS: BP 115/53
== END | disposition home or self-care (01) ==
LOC: SDC 06-10 12:30
PROVIDERS: Surgery
DX: D64.9 Anemia, unspecified (principal); E10.22 Type 1 diabetes mellitus with diabetic chronic kidney disease; I50.9 Heart failure, unspecified; N18.4 Chronic kidney disease, stage 4 (severe); I48.91 Unspecified atrial fibrillation; I25.10 Atherosclerotic heart disease of native coronary artery without angina pectoris; I25.2 Old myocardial infarction; Z95.1 Presence of aortocoronary bypass graft; F32.9 Major depressive disorder, single episode, unspecified; Z88.8 Allergy status to other drugs, medicaments and biological substances; Z79.899 Other long term (current) drug therapy; E78.5 Hyperlipidemia, unspecified; Z86.73 Personal history of transient ischemic attack (TIA), and cerebral infarction without residual deficits; J44.9 Chronic obstructive pulmonary disease, unspecified; K21.9 Gastro-esophageal reflux disease without esophagitis; I13.0 Hypertensive heart and chronic kidney disease with heart failure and stage 1 through stage 4 chronic kidney disease, or unspecified chronic kidney disease

== ENCOUNTER → 2017-09-23 | Outpatient (CLI) | payer OTHER | END | disposition home or self-care (01) | LOC: RAD 14:16 | DX: J44.9 Chronic obstructive pulmonary disease, unspecified (principal) ==

== ENCOUNTER → 2018-01-10 | Outpatient (CLI) | payer OTHER ==
[2018-01-10 14:09] LABS: BILIRUBIN NEGATIVE (NEGATIVE); BLOOD 1+ (NEGATIVE); CLARITY SL CLOUDY (CLEAR); COLOR YELLOW (YELLOW); GLUCOSE NEGATIVE (NEGATIVE); KETONE TRACE (NEGATIVE); LEUKO ESTERASE 1+ (NEGATIVE); NITRITE NEGATIVE (NEGATIVE); PH 5.5 (5.0-9.0); UROBILINOGEN 0.2 E.U./dl (0.2-1.0)
[2018-01-10 14:18] LABS: BASO # 0.1 10*3/uL (0.0-0.1); EOS # 0.1 10*3/uL (0.0-0.4); EOS % 1.6 % (1.0-4.0); HEMATOCRIT 34.3 % (37.0-47.0); HEMOGLOBIN 10.8 g/dl (12.0-16.0); LYMPH # 2.2 10*3/uL (1.3-4.4); LYMPH % 28.1 % (27.0-41.0); MEAN CELL VOLUME 93.5 fl (81.0-99.0); MEAN CORPUSCULAR HGB 29.4 pg (27.0-31.0); MEAN CORPUSCULAR HGB CONC 31.5 g/dl (33.0-37.0); MEAN PLATELET VOLUME 10.2 fl (9.6-12.3); MONO # 0.7 10*3/uL (0.1-1.0); MONO % 8.5 % (3.0-9.0); NEUT # 4.8 10*3/uL (2.3-7.9); NEUT % 60.4 % (47.0-73.0); PLATELET COUNT AUTOMATED 177 10*3/uL (130-400); RED BLOOD COUNT 3.67 10*6/uL (4.10-5.10); RED CELL DISTRI WIDTH 14.6 % (0-14.5); WHITE BLOOD COUNT 7.9 10*3/uL (4.8-10.8)
[2018-01-10 14:24] LABS: BACTERIA 2+; EPITHELIAL CELLS TNTC; WBC 51-100 wbc/hpf (0-5)
[2018-01-10 14:31] LABS: ALBUMIN 3.3 gm/dl (3.1-4.5); CREATININE 1.97 mg/dL (0.55-1.02); POTASSIUM 4.5 mmol/L (3.5-5.1)
[2018-01-10 16:34] LABS: PTH INTACT 77.4 pg/mL (14.0-72.0); VITAMIN D, 25-HYDROXY 31.9 ng/mL (30-100)
== END | disposition home or self-care (01) ==
LOC: LAB 13:26
PROVIDERS: Internal Medicine Nephrology
DX: E11.22 Type 2 diabetes mellitus with diabetic chronic kidney disease (principal); N18.4 Chronic kidney disease, stage 4 (severe); E11.21 Type 2 diabetes mellitus with diabetic nephropathy; N25.81 Secondary hyperparathyroidism of renal origin

== ENCOUNTER 2018-02-13 23:11 | Emergency (ER) | payer OTHER ==
[~2018-02-13] VITALS: Ht 157.4 cm; Wt 61.7 kg
[2018-02-13 23:19] VITALS: BP 137/62
[2018-02-14 00:20] LABS: BASO % 0.3 % (0.0-1.0); EOS # 0.1 10*3/uL (0.0-0.4); EOS % 0.4 % (1.0-4.0); HEMATOCRIT 35.3 % (37.0-47.0); HEMOGLOBIN 10.8 g/dl (12.0-16.0); LYMPH # 1.2 10*3/uL (1.3-4.4); LYMPH % 8.9 % (27.0-41.0); MEAN CELL VOLUME 93.6 fl (81.0-99.0); MEAN CORPUSCULAR HGB 28.6 pg (27.0-31.0); MEAN CORPUSCULAR HGB CONC 30.6 g/dl (33.0-37.0); MEAN PLATELET VOLUME 10.8 fl (9.6-12.3); MONO # 0.7 10*3/uL (0.1-1.0); MONO % 5.3 % (3.0-9.0); NEUT # 11.7 10*3/uL (2.3-7.9); NEUT % 84.7 % (47.0-73.0); PLATELET COUNT AUTOMATED 170 10*3/uL (130-400); RED BLOOD COUNT 3.77 10*6/uL (4.10-5.10); RED CELL DISTRI WIDTH 13.8 % (0-14.5); WHITE BLOOD COUNT 13.9 10*3/uL (4.8-10.8)
[2018-02-14 00:30] LABS: BILIRUBIN NEGATIVE (NEGATIVE); BLOOD 1+ (NEGATIVE); CLARITY SL CLOUDY (CLEAR); COLOR YELLOW (YELLOW); GLUCOSE NEGATIVE (NEGATIVE); KETONE NEGATIVE (NEGATIVE); LEUKO ESTERASE 1+ (NEGATIVE); NITRITE NEGATIVE (NEGATIVE); PH 5.5 (5.0-9.0); SPECIFIC GRAVITY 1.025 (1.005-1.030); UROBILINOGEN 0.2 E.U./dl (0.2-1.0)
[2018-02-14 00:36] LABS: BACTERIA 1+; EPITHELIAL CELLS 35-40
[2018-02-14 00:37] LABS: WBC 31-40 wbc/hpf (0-5)
[2018-02-14 00:40] LABS: ALBUMIN 3.5 gm/dl (3.1-4.5); ALKALINE PHOSPHATASE 86 U/L (45-117); BUN 34 mg/dl (7-24); CHLORIDE 108 mmol/L (98-107); CPK 67 U/L (26-192); CREATININE 2.16 mg/dL (0.55-1.02); LIPASE 183 U/L (73-393); POTASSIUM 5.3 mmol/L (3.5-5.1); SGOT/AST 26 IU/L (3-35); SGPT/ALT 22 U/L (12-78); SODIUM 135 mmol/L (136-145); TOTAL PROTEIN 7.6 gm/dL (6.4-8.2)
[2018-02-14 00:42] LABS: CKMB 2.8 ng/ml (0.5-3.6); TROPONIN I < 0.015 ng/ml (<0.045)
[2018-02-14] MEDS ORDERED: OMNICEF300 MG PO ×2 (01:30→01:31)
[2018-02-14] MEDS ORDERED: ZOFRAN ODT4 MG SL (01:31)
[2018-02-14] MEDS ORDERED: CEFDINIR300 MG PO (01:33)
== END 2018-02-14 02:30 | disposition home or self-care (01) ==
LOC: ED 23:11
PROVIDERS: Emergency Medicine
DX: N39.0 Urinary tract infection, site not specified (principal); K52.9 Noninfective gastroenteritis and colitis, unspecified; E11.22 Type 2 diabetes mellitus with diabetic chronic kidney disease; N18.3 Chronic kidney disease, stage 3 (moderate); I25.10 Atherosclerotic heart disease of native coronary artery without angina pectoris; I48.91 Unspecified atrial fibrillation; K21.9 Gastro-esophageal reflux disease without esophagitis; M19.90 Unspecified osteoarthritis, unspecified site; Z90.89 Acquired absence of other organs; Z95.1 Presence of aortocoronary bypass graft; Z90.49 Acquired absence of other specified parts of digestive tract; Z98.890 Other specified postprocedural states; Z79.899 Other long term (current) drug therapy; Z87.891 Personal history of nicotine dependence; Z86.73 Personal history of transient ischemic attack (TIA), and cerebral infarction without residual deficits; Z90.710 Acquired absence of both cervix and uterus; Z88.5 Allergy status to narcotic agent; Z88.6 Allergy status to analgesic agent; Z79.4 Long term (current) use of insulin

== ENCOUNTER 2018-02-28 17:51 | Emergency (ER) | payer OTHER ==
[~2018-02-28] VITALS: Wt 61.7 kg
[~2018-02-28 17:51] MED LIST changes: +CEFDINIR300 MG PO; +OMNICEF300 MG PO
[2018-02-28 18:37] LABS: BASO # 0.1 10*3/uL (0.0-0.1); BASO % 0.5 % (0.0-1.0); EOS # 0.2 10*3/uL (0.0-0.4); EOS % 1.4 % (1.0-4.0); HEMATOCRIT 31.8 % (37.0-47.0); HEMOGLOBIN 9.8 g/dl (12.0-16.0); LYMPH # 2.5 10*3/uL (1.3-4.4); LYMPH % 18.7 % (27.0-41.0); MEAN CELL VOLUME 94.1 fl (81.0-99.0); MEAN CORPUSCULAR HGB CONC 30.8 g/dl (33.0-37.0); MEAN PLATELET VOLUME 10.4 fl (9.6-12.3); MONO # 1.2 10*3/uL (0.1-1.0); MONO % 8.7 % (3.0-9.0); NEUT # 9.6 10*3/uL (2.3-7.9); NEUT % 70.3 % (47.0-73.0); PLATELET COUNT AUTOMATED 194 10*3/uL (130-400); RED BLOOD COUNT 3.38 10*6/uL (4.10-5.10); RED CELL DISTRI WIDTH 13.8 % (0-14.5); WHITE BLOOD COUNT 13.6 10*3/uL (4.8-10.8)
[2018-02-28 18:46] LABS: INTERNATIONAL NORM RATIO 1.3 (2.0-3.5)
[2018-02-28 19:03] LABS: ALBUMIN 3.2 gm/dl (3.1-4.5); ALKALINE PHOSPHATASE 80 U/L (45-117); BUN 24 mg/dl (7-24); CHLORIDE 113 mmol/L (98-107); CREATININE 2.11 mg/dL (0.55-1.02); LIPASE 112 U/L (73-393); POTASSIUM 4.5 mmol/L (3.5-5.1); SGOT/AST 20 IU/L (3-35); SGPT/ALT 15 U/L (12-78); SODIUM 141 mmol/L (136-145); TOTAL PROTEIN 7.1 gm/dL (6.4-8.2)
[2018-02-28 19:10] LABS: TROPONIN I < 0.015 ng/ml (<0.045)
[2018-02-28 19:11] LABS: BILIRUBIN NEGATIVE (NEGATIVE); BLOOD NEGATIVE (NEGATIVE); CLARITY SL CLOUDY (CLEAR); COLOR YELLOW (YELLOW); GLUCOSE NEGATIVE (NEGATIVE); KETONE TRACE (NEGATIVE); LEUKO ESTERASE TRACE (NEGATIVE); NITRITE NEGATIVE (NEGATIVE); PH 5.5 (5.0-9.0); SPECIFIC GRAVITY 1.025 (1.005-1.030)
[2018-02-28 19:20] LABS: EPITHELIAL CELLS TNTC
[2018-02-28 19:21] LABS: BACTERIA 1+; WBC 16-20 wbc/hpf (0-5)
[2018-02-28 19:49] VITALS: BP 120/67
[2018-04-21] MEDS ORDERED: LOMOTIL 2.5-0.1 EACH PO (01:19)
[2018-04-24] MEDS ORDERED: VITAMIN D-32000 UNIT PO (12:23)
[2018-04-24] MEDS ORDERED: PRAVACHOL20 MG PO (12:24)
[2018-04-24] MEDS ORDERED: XARE20MG PO (12:24)
[2018-04-24] MEDS ORDERED: VELTASSA8.4 GM PO (12:25)
[2018-04-24] MEDS ORDERED: LEVEMIR100 UNIT/1 SQ (12:26)
[2018-04-24] MEDS ORDERED: Lopressor25 MG PO (12:26)
[2018-04-24] MEDS ORDERED: PROTONIX TR40 M1 PO (12:27)
[2018-04-24] MEDS ORDERED: NOVOLOG100 UNIT/1 SQ (12:27)
[2018-04-24] MEDS ORDERED: EVISTA60 MG PO (12:28)
[2018-04-24] MEDS ORDERED: CARDIZEM CD360 MG PO (12:28)
[2018-04-24] MEDS ORDERED: LOMOTIL 2.5-0.1 EACH PO (18:10)
[2018-04-26] MEDS ORDERED: NATURE'S BLEND F1 MG PO (14:15)
== END 2018-02-28 19:50 | disposition home or self-care (01) ==
LOC: ED 17:51
PROVIDERS: Physician Assistant
DX: R10.9 Unspecified abdominal pain (principal); R11.2 Nausea with vomiting, unspecified; R19.7 Diarrhea, unspecified; Z00.00 Encounter for general adult medical examination without abnormal findings; Z88.6 Allergy status to analgesic agent; Z88.8 Allergy status to other drugs, medicaments and biological substances; Z79.899 Other long term (current) drug therapy; Z87.891 Personal history of nicotine dependence

== ENCOUNTER 2018-03-07 19:54 | Emergency (ER) | payer OTHER ==
[~2018-03-07] VITALS: Wt 60.8 kg
[2018-03-07 20:55] LABS: BASO # 0.1 10*3/uL (0.0-0.1); BASO % 0.7 % (0.0-1.0); EOS # 0.2 10*3/uL (0.0-0.4); EOS % 2.1 % (1.0-4.0); HEMATOCRIT 31.3 % (37.0-47.0); HEMOGLOBIN 9.5 g/dl (12.0-16.0); LYMPH # 2.4 10*3/uL (1.3-4.4); LYMPH % 28.7 % (27.0-41.0); MEAN CELL VOLUME 93.7 fl (81.0-99.0); MEAN CORPUSCULAR HGB 28.4 pg (27.0-31.0); MEAN CORPUSCULAR HGB CONC 30.4 g/dl (33.0-37.0); MEAN PLATELET VOLUME 9.8 fl (9.6-12.3); MONO # 0.9 10*3/uL (0.1-1.0); MONO % 10.7 % (3.0-9.0); NEUT # 4.7 10*3/uL (2.3-7.9); NEUT % 57.3 % (47.0-73.0); PLATELET COUNT AUTOMATED 204 10*3/uL (130-400); RED BLOOD COUNT 3.34 10*6/uL (4.10-5.10); RED CELL DISTRI WIDTH 13.8 % (0-14.5); WHITE BLOOD COUNT 8.3 10*3/uL (4.8-10.8)
[2018-03-07 21:11] LABS: ALBUMIN 3.1 gm/dl (3.1-4.5); CREATININE 1.74 mg/dL (0.55-1.02)
[2018-03-07 21:12] LABS: POTASSIUM 4.2 mmol/L (3.5-5.1)
[2018-03-07 23:35] VITALS: BP 115/55
[2018-04-21] MEDS ORDERED: LOMOTIL 2.5-0.1 EACH PO (01:19)
[2018-04-24] MEDS ORDERED: VITAMIN D-32000 UNIT PO (12:23)
[2018-04-24] MEDS ORDERED: PRAVACHOL20 MG PO (12:24)
[2018-04-24] MEDS ORDERED: XARE20MG PO (12:24)
[2018-04-24] MEDS ORDERED: VELTASSA8.4 GM PO (12:25)
[2018-04-24] MEDS ORDERED: Lopressor25 MG PO (12:26)
[2018-04-24] MEDS ORDERED: LEVEMIR100 UNIT/1 SQ (12:26)
[2018-04-24] MEDS ORDERED: NOVOLOG100 UNIT/1 SQ (12:27)
[2018-04-24] MEDS ORDERED: PROTONIX TR40 M1 PO (12:27)
[2018-04-24] MEDS ORDERED: CARDIZEM CD360 MG PO (12:28)
[2018-04-24] MEDS ORDERED: EVISTA60 MG PO (12:28)
[2018-04-24] MEDS ORDERED: LOMOTIL 2.5-0.1 EACH PO (18:10)
[2018-04-26] MEDS ORDERED: NATURE'S BLEND F1 MG PO (14:15)
== END 2018-03-08 00:31 | disposition home or self-care (01) ==
LOC: ED 19:54
PROVIDERS: Emergency Medicine
DX: E83.42 Hypomagnesemia (principal); E11.22 Type 2 diabetes mellitus with diabetic chronic kidney disease; N18.3 Chronic kidney disease, stage 3 (moderate); G89.29 Other chronic pain; I50.9 Heart failure, unspecified; E78.5 Hyperlipidemia, unspecified; M19.90 Unspecified osteoarthritis, unspecified site; I48.91 Unspecified atrial fibrillation; K21.9 Gastro-esophageal reflux disease without esophagitis; I25.10 Atherosclerotic heart disease of native coronary artery without angina pectoris; Z90.89 Acquired absence of other organs; Z95.1 Presence of aortocoronary bypass graft; Z98.890 Other specified postprocedural states; Z87.891 Personal history of nicotine dependence; Z90.49 Acquired absence of other specified parts of digestive tract; Z86.73 Personal history of transient ischemic attack (TIA), and cerebral infarction without residual deficits; Z88.5 Allergy status to narcotic agent; Z88.8 Allergy status to other drugs, medicaments and biological substances; Z79.899 Other long term (current) drug therapy; Z79.4 Long term (current) use of insulin

== ENCOUNTER → 2018-03-24 | Outpatient (CLI) | payer OTHER ==
[~2018-03-24] MED LIST changes: +LEVEMIR100 UNIT/1 SQ; +LOMOTIL 2.5-0.1 EACH PO; +Lopressor25 MG PO; +NATURE'S BLEND F1 MG PO; +NOVOLOG100 UNIT/1 SQ; +PRAVACHOL20 MG PO; +PROTONIX TR40 M1 PO; +VELTASSA8.4 GM PO; +VITAMIN D-32000 UNIT PO
== END | disposition home or self-care (01) ==
LOC: LAB 11:39
DX: R19.7 Diarrhea, unspecified (principal)

== ENCOUNTER 2018-05-31 16:37 | Inpatient (IN) | payer OTHER ==
[~2018-05-31] VITALS: Ht 157.4 cm; Wt 57.4 kg
--- NOTE | ~2018-05-31 | EKG ---
[place], [place] ELECTROCARDIOGRAM REPORT NAME: HANG SCOTT UNIT #: [id number] ROOM: 525 DOCTOR: EPIPHANY DRAFT REPORT BIRTHDATE: [birth year] [facility] Test Date: 2018-05-31 Test Time: 17:12:43 Pat Name: HANG SCOTT Department: Room: 525 Gender: F Senior Account Clerk: JANY : 1935 Requested By: MEDINA BOLANOS Order Number: [id number] Reading MD: Claude Romero MD Measurements Intervals [place] Rate: 68 P: [place]: QRS: -37 QRSD: 105 T: 13 QT: 479 QTc: 510 Interpretive Statements Atrial fibrillation Inferior infarct, old Anteroseptal infarct, old Prolonged QT interval Electronically Signed On 06-02-2018 7:57:04 PDT by Claude Romero MD CM:EKGRPT:ELECTROCARDIOGRAM REPORT 1712 [id number] MEDINA BOLANOS MD EPIPHANY DRAFT REPORT MEDINA BOLANOS MD
[2018-05-31 16:38] VITALS: BP 117/52
[2018-05-31 17:17] LABS: BASO # 0.1 10*3/uL (0.0-0.1); BASO % 0.7 % (0.0-1.0); EOS # 0.1 10*3/uL (0.0-0.4); EOS % 1.5 % (1.0-4.0); HEMATOCRIT 29.3 % (37.0-47.0); HEMOGLOBIN 8.9 g/dl (12.0-16.0); LYMPH # 1.8 10*3/uL (1.3-4.4); LYMPH % 25.6 % (27.0-41.0); MEAN CELL VOLUME 87.7 fl (81.0-99.0); MEAN CORPUSCULAR HGB 26.6 pg (27.0-31.0); MEAN CORPUSCULAR HGB CONC 30.4 g/dl (33.0-37.0); MEAN PLATELET VOLUME 10.1 fl (9.6-12.3); MONO # 0.5 10*3/uL (0.1-1.0); MONO % 7.6 % (3.0-9.0); NEUT # 4.4 10*3/uL (2.3-7.9); NEUT % 64.2 % (47.0-73.0); PLATELET COUNT AUTOMATED 206 10*3/uL (130-400); RED BLOOD COUNT 3.34 10*6/uL (4.10-5.10); WHITE BLOOD COUNT 6.8 10*3/uL (4.8-10.8)
[2018-05-31 17:36] LABS: ALKALINE PHOSPHATASE 80 U/L (45-117); BUN 24 mg/dl (7-24); CHLORIDE 106 mmol/L (98-107); CREATININE 1.47 mg/dL (0.55-1.02); POTASSIUM 3.7 mmol/L (3.5-5.1); SGOT/AST 21 IU/L (3-35); SGPT/ALT 13 U/L (12-78); SODIUM 138 mmol/L (136-145); TOTAL PROTEIN 6.9 gm/dL (6.4-8.2)
[2018-05-31 17:38] LABS: TROPONIN I < 0.015 ng/ml (<0.045)
[2018-05-31 17:39] LABS: BILIRUBIN 1+ (NEGATIVE); BLOOD NEGATIVE (NEGATIVE); CLARITY SL CLOUDY (CLEAR); COLOR YELLOW (YELLOW); GLUCOSE NEGATIVE (NEGATIVE); KETONE NEGATIVE (NEGATIVE); LEUKO ESTERASE 2+ (NEGATIVE); NITRITE NEGATIVE (NEGATIVE); SPECIFIC GRAVITY 1.015 (1.005-1.030); UROBILINOGEN 0.2 E.U./dl (0.2-1.0)
[2018-05-31 17:40] VITALS: BP 108/68
[2018-05-31 17:41] LABS: BACTERIA 2+; EPITHELIAL CELLS 41-50
[2018-05-31 17:42] LABS: WBC 31-40 wbc/hpf (0-5)
[2018-05-31] MEDS ORDERED: COLESTID1 GM PO (17:50)
[2018-05-31 18:30] VITALS: BP 119/54
[2018-05-31 20:00] VITALS: BP 115/68
[2018-06-01] VITALS: BP 114/46
[2018-06-01 06:09] LABS: HEMATOCRIT 29.2 % (37.0-47.0); LYMPH # 0.9 10*3/uL (1.3-4.4); LYMPH % 12.6 % (27.0-41.0); MEAN CELL VOLUME 87.2 fl (81.0-99.0); MEAN CORPUSCULAR HGB 26.9 pg (27.0-31.0); MEAN CORPUSCULAR HGB CONC 30.8 g/dl (33.0-37.0); MEAN PLATELET VOLUME 10.3 fl (9.6-12.3); MONO # 0.1 10*3/uL (0.1-1.0); MONO % 1.1 % (3.0-9.0); NEUT # 6.1 10*3/uL (2.3-7.9); NEUT % 85.9 % (47.0-73.0); PLATELET COUNT AUTOMATED 193 10*3/uL (130-400); RED BLOOD COUNT 3.35 10*6/uL (4.10-5.10); WHITE BLOOD COUNT 7.2 10*3/uL (4.8-10.8)
[2018-06-01 06:44] LABS: CREATININE 1.48 mg/dL (0.55-1.02); PHOSPHOROUS 2.5 mg/dL (2.5-4.9); POTASSIUM 4.4 mmol/L (3.5-5.1)
[2018-06-01 08:30] VITALS: BP 128/64
[2018-06-01 12:00] VITALS: BP 108/58
[2018-06-01] MEDS ORDERED: CELEXA10 MG PO (13:52)
[2018-06-01 16:00] VITALS: BP 110/54
[2018-06-01 20:00] VITALS: BP 121/50
[2018-06-02] VITALS: BP 113/54
[2018-06-02 06:10] LABS: BASO % 0.1 % (0.0-1.0); HEMATOCRIT 26.2 % (37.0-47.0); LYMPH # 1.5 10*3/uL (1.3-4.4); LYMPH % 7.8 % (27.0-41.0); MEAN CELL VOLUME 87.9 fl (81.0-99.0); MEAN CORPUSCULAR HGB 26.8 pg (27.0-31.0); MEAN CORPUSCULAR HGB CONC 30.5 g/dl (33.0-37.0); MEAN PLATELET VOLUME 10.6 fl (9.6-12.3); MONO # 0.8 10*3/uL (0.1-1.0); MONO % 4.3 % (3.0-9.0); NEUT # 16.9 10*3/uL (2.3-7.9); NEUT % 86.9 % (47.0-73.0); PLATELET COUNT AUTOMATED 200 10*3/uL (130-400); RED BLOOD COUNT 2.98 10*6/uL (4.10-5.10); RED CELL DISTRI WIDTH 14.2 % (0-14.5); WHITE BLOOD COUNT 19.4 10*3/uL (4.8-10.8)
[2018-06-02 06:12] LABS: CREATININE 1.55 mg/dL (0.55-1.02); POTASSIUM 4.3 mmol/L (3.5-5.1)
[2018-06-02 08:00] VITALS: BP 123/56
== END 2018-06-02 12:00 | disposition home or self-care (01) | DRG 644 ==
LOC: ED 16:37 → 5E 17:13 → EDHOLD 17:13 → 5E 17:43
PROVIDERS: Emergency Medicine; Internal Medicine; Student in an Organized Health Care Education/Training Program
DX: E16.0 Drug-induced hypoglycemia without coma (principal); E44.0 Moderate protein-calorie malnutrition; I50.32 Chronic diastolic (congestive) heart failure; N39.0 Urinary tract infection, site not specified; M81.0 Age-related osteoporosis without current pathological fracture; N18.3 Chronic kidney disease, stage 3 (moderate); I25.10 Atherosclerotic heart disease of native coronary artery without angina pectoris; I48.2 Chronic atrial fibrillation; M19.90 Unspecified osteoarthritis, unspecified site; K52.9 Noninfective gastroenteritis and colitis, unspecified; R73.9 Hyperglycemia, unspecified; K57.90 Diverticulosis of intestine, part unspecified, without perforation or abscess without bleeding; E66.9 Obesity, unspecified; D64.9 Anemia, unspecified; K21.9 Gastro-esophageal reflux disease without esophagitis; T38.3X5A Adverse effect of insulin and oral hypoglycemic [antidiabetic] drugs, initial encounter; E78.5 Hyperlipidemia, unspecified; G89.29 Other chronic pain; M54.5 Low back pain; Z88.6 Allergy status to analgesic agent; Z88.8 Allergy status to other drugs, medicaments and biological substances; Z86.73 Personal history of transient ischemic attack (TIA), and cerebral infarction without residual deficits; Z90.710 Acquired absence of both cervix and uterus; Z95.1 Presence of aortocoronary bypass graft; Z90.49 Acquired absence of other specified parts of digestive tract; Z98.41 Cataract extraction status, right eye; Z98.42 Cataract extraction status, left eye; Z90.5 Acquired absence of kidney; Z82.49 Family history of ischemic heart disease and other diseases of the circulatory system; Z68.32 Body mass index [BMI] 32.0-32.9, adult; Z83.3 Family history of diabetes mellitus; Z80.9 Family history of malignant neoplasm, unspecified; Z79.4 Long term (current) use of insulin; Z79.84 Long term (current) use of oral hypoglycemic drugs; Y92.89 Other specified places as the place of occurrence of the external cause